=== PATIENT | female | born 1990 | race Caucasian/White ===

== ENCOUNTER 2017-11-05 20:26 | Emergency (ER) | payer BC, OTHER ==
[~2017-11-05] VITALS: Ht 172.7 cm; Wt 161.0 kg
[~2017-11-05 20:26] MED LIST: MOBIC7.5 MG; WELLBUTRIN100 MG
[2017-11-05] MEDS ORDERED: HYDROCODONE/APAP 10MG-325MG TAB PO ONE (22:15)
[2017-11-05] MEDS ORDERED: KETOROLAC TROMETHAMINE 60 MG/2 ML VIAL IM ONE (22:15)
[2017-11-05 23:04] LABS: BILIRUBIN,URINE NEGATIVE (NEGATIVE); KETONES,URINE NEGATIVE (NEGATIVE); LEUKOCYTE ESTERASE ,URINE NEGATIVE (NEGATIVE); NITRITE,URINE NEGATIVE (NEGATIVE); URINE UROBILINOGEN 0.2 mg/dL (0.2 - 1)
[2017-11-05 23:10] LABS: PROTEIN,URINE DIPSTICK 1+ (NEGATIVE)
[2017-11-05 23:11] LABS: CLARITY,URINE CLOUDY (CLEAR); COLOR,URINE YELLOW (YELLOW)
[2017-11-05 23:13] LABS: PREGNANCY TEST, URINE NEGATIVE (NEGATIVE)
[2017-11-05 23:14] LABS: EPITHELIAL CELLS,URINE FEW /LPF; RBC,URINE 21-50 /HPF (0-5); WBC,URINE (MAN) 0-5 /HPF (0-5)
--- NOTE | 2017-11-06 00:15 | Diagnostic Imaging Report ---
EXAM: LUMBAR SPINE, AP, lateral, bilateral oblique and coned lateral view, 5 views DATE: 11/05/2017 9:57 PM Time stamp on exam: 2316 hours INDICATION: Lower back pain COMPARISON: None FINDINGS: BONES: Five lumbar-type vertebral bodies. The alignment is within normal limits. No acute displaced fractures. No lytic or blastic lesions. DISCS: The disc-spaces are well-maintained. JOINTS: The facet joints and sacroiliac joints are unremarkable. SOFT TISSUES: Unremarkable IMPRESSION: No acute lumbar spine radiographic findings. Signed by: Dr. Junie Reilly M.D. on 11/06/2017 12:11 AM
[2017-11-06 01:28] VITALS: BP 139/71
== END 2017-11-06 01:45 | disposition home or self-care (01) ==
LOC: ER 20:26
DX: M54.41 Lumbago with sciatica, right side (principal); S39.012A Strain of muscle, fascia and tendon of lower back, initial encounter
CPT/HCPCS: 72110; 81001; 81025; 87086; 99283; J1885

== ENCOUNTER 2019-03-31 17:38 | Emergency (ER) | payer BC ==
[~2019-03-31] VITALS: Ht 172.7 cm; Wt 170.1 kg
--- OUTSIDE RECORDS SUMMARY | 2019-03-31 17:40 | XMS REPORT ---
Author Author [facility] Address Unknown Phone Unavailable Care Team Providers Care Cook Larder Name Role Phone Maureen ENGEL Unavailable Unavailable Problems This patient has no known problems. Allergies, Adverse Reactions, Alerts This patient has no known allergies or adverse reactions. Medications This patient has no known medications. Results Test Description Test Time Test Comments Text Results Atomic Results Result Comments SP LUMBAR, COMPLETE MIN 4VW [place] [address] Patient Name: JAZMIN ASHBY MR #: [id number] : 1990 Age/Sex: 26/F Req #: [id number] Adm Physician: Ordered by: ROMA ENGEL MD Report #: [id number] Location: ER Room/Bed: Procedure: [id number] DX/SP LUMBAR, COMPLETE MIN 4VW Exam Date: 11/06/17 Exam Time: 2350 REPORT STATUS: Signed EXAM: LUMBAR SPINE, AP, lateral, bilateral oblique and coned lateral view, 5 views DATE: 11/05/2017 9:57 PM Time stamp on exam: 2316 hours INDICATION: Lower back pain COMPARISON: None FINDINGS: BONES: Five lumbar-type vertebral bodies. The alignment is within normal limits. No acute displaced fractures. No lytic or blastic lesions. DISCS: The disc-spaces are well-maintained. JOINTS: The facet joints and sacroiliac joints are unremarkable. SOFT TISSUES: Unremarkable IMPRESSION: No acute lumbar spine radiographic findings. Signed by: Dr. Pattie Reilly M.D. on 11/06/2017 12:11 AM Dictated By: PATTIE REILLY MD Transcribed By: CHAVA on 11/06/1710 COPY TO: ROMA ENGEL MD
[2019-03-31] MEDS ORDERED: SODIUM CHLORIDE 0.9% 1000ML 1,000 ML IV STA (17:47)
[2019-03-31] MEDS ORDERED: MECLIZINE HCL 12.5 MG TAB PO ONE (18:00)
[2019-03-31 18:07] LABS: BASOPHILS # (AUTO) 0.1 (0.0-0.1); BASOPHILS % 0.7 % (0.0-1.0); EOSINOPHILS # (AUTO) 0.2 (0.0-0.4); EOSINOPHILS % 1.5 % (0.0-6.0); HEMATOCRIT 43.8 % (34.2-44.1); HEMOGLOBIN 14.2 g/dL (12.0-16.0); LYMPHOCYTES # (AUTO) 3.1 (1.0-3.2); LYMPHOCYTES % 28.1 % (18.0-39.1); MEAN CORPUSCULAR HEMOGLOBIN 27.3 pg (28-32); MEAN CORPUSCULAR HGB CONC 32.4 g/dL (31-35); MEAN CORPUSCULAR VOLUME 84.1 fL (81-99); MONOCYTES # (AUTO) 0.6 (0.2-0.8); NEUTROPHILS % 63.8 % (38.7-80.0); PLATELET COUNT 402 x10e3/uL (140-360); RED BLOOD COUNT 5.21 x10e6/uL (3.6-5.1); RED CELL DISTRIBUTION WIDTH 13.5 % (11.7-14.4)
[2019-03-31 18:22] LABS: ALANINE AMINOTRANSFERASE 37 IU/L (0-55); ALBUMIN 3.7 g/dL (3.5-5.0); ALBUMIN/GLOBULIN RATIO 0.8 (0.8-2.0); ALKALINE PHOSPHATASE 57 IU/L (40-150); ANION GAP 16.3 mmol/L (8-16); BLOOD UREA NITROGEN 10 mg/dL (7-26); BUN/CREATININE RATIO 14 (6-25); CARBON DIOXIDE 22 mmol/L (22-29); CHLORIDE 103 mmol/L (98-107); CREATINE KINASE 48 IU/L (29-168); CREATININE, SERUM 0.72 mg/dL (0.57-1.11); EST GLOMERULAR FILTRATION RATE > 60 ML/MIN (60-); GLUCOSE 129 mg/dL (74-118); POTASSIUM 4.3 mmol/L (3.5-5.1); SODIUM 137 mmol/L (136-145)
--- NOTE | 2019-03-31 18:29 | Diagnostic Imaging Report ---
CT BRAIN WO HISTORY: Vertigo, dizziness, headache, arm and hand numbness COMPARISON: Report from head CT dated 10/10/2015 (images not available at time of dictation). TECHNIQUE: Noncontrast axial scans were obtained from skull base to the vertex. Coronal and sagittal reconstructions obtained from the axial data. One or more of the following dose reduction techniques were used: Automated exposure control, adjustment of the mA and/or kV according to patient size, and/or utilization of iterative reconstruction technique. DISCUSSION: Scalp/Skull: Unremarkable. Brain sulci: Appropriate for patient's age. Ventricles: Normal in size and configuration. No hydrocephalus. Extra-axial spaces: No masses or fluid collections. Parenchyma: No abnormal densities. No mass, hemorrhage, or large vascular territory acute infarct. Dural sinuses: No abnormal densities. Sellar/Suprasellar region: Intact. Skull base: Intact. Incidental findings: None. IMPRESSION: No intracranial abnormalities. Signed by: Dr. Stephan White M.D. on 03/31/2019 6:26 PM
[2019-03-31] MEDS ORDERED: KETOROLAC TROMETHAMINE 30 MG/ML VIAL IV NR (18:46)
[2019-03-31] MEDS ORDERED: DIPHENHYDRAMINE HCL INJ 50 MG/ML VIAL IV NR (19:00)
[2019-03-31] MEDS ORDERED: METOCLOPRAMIDE HCL 10 MG/2ML VIAL IV NR (19:00)
[2019-03-31 19:14] LABS: BILIRUBIN,URINE NEGATIVE (NEGATIVE); CLARITY,URINE SL CLOUDY (CLEAR); COLOR,URINE YELLOW (YELLOW); KETONES,URINE NEGATIVE (NEGATIVE); LEUKOCYTE ESTERASE ,URINE TRACE (NEGATIVE); NITRITE,URINE NEGATIVE (NEGATIVE); PREGNANCY TEST, URINE NEGATIVE (NEGATIVE); PROTEIN,URINE DIPSTICK NEGATIVE (NEGATIVE); URINE UROBILINOGEN 0.2 mg/dL (0.2 - 1)
[2019-03-31 19:24] LABS: BACTERIA,URINE MANY /HPF; EPITHELIAL CELLS,URINE FEW /LPF; RBC,URINE 0-5 /HPF (0-5); WBC,URINE (MAN) 0-5 /HPF (0-5)
--- NOTE | 2019-03-31 19:44 | NUR ---
pt states she feels much better after meds, awake alert skin w/d resp nonlab. nad noted. approx 500cc ns infused
== END 2019-03-31 20:10 | disposition home or self-care (01) ==
LOC: ER 17:38
DX: R42 Dizziness and giddiness (principal); G44.89 Other headache syndrome; R11.0 Nausea
CPT/HCPCS: 36415; 70450; 80053; 81001; 81025; 82550; 82553; 84484; 85025; 87086; 93005; 99284; J1200; J1885; J2765; J7030; J8597

== ENCOUNTER 2020-01-01 03:28 | Observation (INO) | payer BC, OTHER ==
[~2020-01-01] VITALS: Ht 170.2 cm; Wt 129.7 kg
--- OUTSIDE RECORDS SUMMARY | 2020-01-01 03:30 | XMS REPORT | Summary of Care ---
Author Author [facility] Address [address] [place] [address] Phone Unavailable Care Team Providers Care Nut Grinder Name Role Phone LB ARITA MD Unavailable Unavailable TESS HOGAN HIJOSE RAUL Unavailable Unavailable Unavailable Unavailable Functional Status Name Dates Details Functional status health issues are not documented Status: Name Dates Details Cognitive status health issues are not documented Status: Problems Name Dates Details Pre-op testing (V7., Z01.818) Status: Active GERD (gastroesophageal reflux disease) (530.81, K21.9) Status: Active NIKHIL on CPAP (327.23, G47.33) Status: Active Eczema (692.9, L30.9) Status: Active Migraine (346.90, G43.909) Status: Active Vertigo (780.4, R42) Status: Active H/O ovarian cystectomy (V15.29, Z98.890) Status: Active Menorrhagia (626.2, N92.0) Status: Active IUD (intrauterine device) in place (V45.51, Z97.5) Status: Active Anxiety and depression (300.00, F41.9) Status: Active Herniated disc (722.2) Status: Active Plantar fasciitis (728.71, M72.2) Status: Active Encounter for pre-operative laboratory testing (, Z01.812) Status: Active Other protein-calorie malnutrition (263.8, E46) Status: Active Fatigue (780.79, R53.83) Status: Active Chest pain (786.50, R07.9) Status: Active Headache (784.0, R51) Status: Active Pre-operative examination (84, Z01.818) Status: Active Morbid obesity with BMI of 50.0-59.9, adult (278.01, E66.01) Status: Active Dyspnea (786.09, R06.00) Status: Active Medications Name Dates Details Citalopram Hydrobromide 20 MG Oral Tablet Active Allergies and Adverse Reactions Name Dates Details No Known Drug Allergies (Allergy) Status: Active Past Medical History Name Dates Details History of Migraines (346.90, G43.909) Status: Resolved History of obstructive sleep apnea (327.23, Z86.69) Status: Resolved Procedures Procedure Dates Details History of Esophagogastroduodenoscopy Completed Immunization Name Dates Details Immunizations not documented Family History Name Dates Details Family history of diabetes mellitus (V18.0, Z83.3) Status: Active Family history of obesity (V18.19, Z83.49) Status: Active Family history of malignant neoplasm of cervix (V16.49, Z80.49) Status: Active Name Dates Details Family history of hypertension (V17.49, Z82.49) Status: Active Family history of diabetes mellitus (V18.0, Z83.3) Status: Active Family history of obesity (V18.19, Z83.49) Status: Active Family history of cardiac disorder (V17.49, Z82.49) Status: Active Name Dates Details Family history of hypertension (V17.49, Z82.49) Status: Active Family history of diabetes mellitus (V18.0, Z83.3) Status: Active Family history of obesity (V18.19, Z83.49) Status: Active Family history of cardiac disorder (V17.49, Z82.49) Status: Active Social History Name Dates Details - Status: Name Dates Details Never smoker Vital Signs Date Test Result Details No Known Vitals to report Results Date Description Value Details Results not documented Plan of Care Name Dates Details Planned Observations Planned Goals not documented Instructions Name Dates Details Instructions not documented Encounters Appointment; JOSE RAUL PULIDO M.D. Encounter Diagnosis: Problem not documented On: 10-May-2019 14:00 Appointment; CONSTANTINE BROWN M.D. Encounter Diagnosis: Problem not documented On: 26-Jun-2019 8:20 Appointment; ENRIKE MULLER Encounter Diagnosis: Problem not documented On: 03-Jul-2019 8:45 Appointment; CONSTANTINE BROWN M.D. Encounter Diagnosis: Problem not documented On: 19-Jul-2019 16:00 Appointment; CONSTANTINE BROWN M.D. Encounter Diagnosis: Problem not documented On: 19-Jul-2019 16:00
--- OUTSIDE RECORDS SUMMARY | 2020-01-01 03:30 | XMS REPORT | Summary of Care ---
Author Author CONSTANTINE BROWN M.D. Organization Unknown Address Unknown Phone Unavailable Care Team Providers Care Manager Financial Reporting Name Role Phone CONSTANTINE BROWN M.D. Unavailable Unavailable LYLA HOGAN, LB Spencer Unavailable Unavailable TESS HOGAN NYJOSE RAUL Unavailable Unavailable Unavailable Unavailable Functional Status Name Dates Details Functional status health issues are not documented Status: Name Dates Details Cognitive status health issues are not documented Status: Problems Name Dates Details Pre-op testing (., Z01.818) Status: Active GERD (gastroesophageal reflux disease) [...] Z86.69) Status: Resolved Procedures Procedure Dates Details [QLH] CBC (INCLUDES DIFF/PLT) Date: 23-May-2019 [QLH] CMP W/EGFR Date: 23-May-2019 [QLH] FERRITIN Date: 23-May-2019 [QLH] FOLATE, SERUM Date: 23-May-2019 [QLH] HEMOGLOBIN A1c Date: 23-May-2019 [QLH] IRON AND TOTAL IRON BINDING CAPACITY Date: 23-May-2019 [QLH] LIPID PANEL Date: 23-May-2019 [QLH] PTH, INTACT (WITHOUT CALCIUM) Date: 23-May-2019 [QLH] TSH, 3RD GENERATION W/REFLEX TO FT4 Date: 23-May-2019 [QLH] VITAMIN A (RETINOL) Date: 23-May-2019 [QLH] VITAMIN B1, WHOLE BLOOD Date: 23-May-2019 [QLH] VITAMIN B12 Date: 23-May-2019 [QLH] VITAMIN D, 25-HYDROXY, LC/MS/MS Date: 23-May-2019 [QLH] VITAMIN E (TOCOPHEROL) Date: 23-May-2019 [QLH] CMP W/EGFR Date: 26-Jun-2019 [QLH] CBC (INCLUDES DIFF/PLT) Date: 26-Jun-2019 [QLH] LIPID PANEL Date: 26-Jun-2019 [QLH] TSH, 3RD GENERATION W/REFLEX TO FT4 Date: 26-Jun-2019 [QLH] HEMOGLOBIN A1c Date: 26-Jun-2019 [QLH] B TYPE NATRIURETIC PEPTIDE (BNP) Date: 26-Jun-2019 [N] 2D Echo complete, with Doppler [id number] Date: 26-Jun-2019 History of Esophagogastroduodenoscopy Completed Immunization Name Dates [...] smoker Vital Signs Date Test Result Details [id number] BP Systolic 135 mm[Hg] Status: Comments: Location: RUE; Position: Sitting BP Diastolic 84 mm[Hg] Status: Comments: Location: RUE; Position: Sitting Height 67 in Status: Weight 360 lb Status: Body Mass Index Calculated 56.38 kg/m2 Status: Body Surface Area Calculated 2.6 m2 Status: Heart Rate 87 /min Status: Results Date Description Value Details Results not documented Plan of Care Name Dates Details Planned Observations [QLH] CMP W/EGFR On: 13-Aug-2019 Intent [QLH] CBC (INCLUDES DIFF/PLT) On: 13-Aug-2019 Intent [QLH] LIPID PANEL On: 13-Aug-2019 Intent [QLH] TSH, 3RD GENERATION W/REFLEX TO FT4 On: 13-Aug-2019 Intent [QLH] HEMOGLOBIN A1c On: 13-Aug-2019 Intent [QLH] B TYPE NATRIURETIC PEPTIDE (BNP) On: 13-Aug-2019 Intent [N] 2D Echo complete, with Doppler [id number] On: 26-Jun-2019 Intent Planned Goals not documented Planned Encounters Appointment; SE, ECHO On: 03-Jul-2019 8:45 Appointment; CONSTANTINE BROWN M.D. On: 19-Jul-2019 16:00 Interventions Provided Plan* # Preoperative risk assessment * - There are no active cardiac issues that are immediately prohibitive of surgery * - Based on history, I am not sure the patient is able to achieve > 4 METs per history. This likely reflects deconditioning but in order to more accurately risk-stratify, will perform echocardiogram and treadmill stress testing. * # Exertional dyspnea * - Again likely deconditioning but echocardiogram and treadmill stress test as above * # Obesity * - Complicates many aspects of overall wellness * - Encouraged weight loss through heart-healthy caloric restriction and increased physical activity as tolerated. * Follow up in 1 week after tests Discussion/Summary* Reviewed and discussed clinical cardiac findings and medications. * EKG reviewed and discussed. Instructions Name Dates Details Instructions not documented Encounters Appointment; JOSE RAUL PULIDO M.D. Encounter Diagnosis: Problem not documented On: 10-May-2019 14:00 Appointment; CONSTANTINE BROWN M.D. Encounter Diagnosis: Problem not documented On: 26-Jun-2019 8:20
[2020-01-01] MEDS ORDERED: ONDANSETRON HCL INJ 2MG/ML 2ML 2 MG/ML VIAL IV STA ×2 (03:32→06:53)
[2020-01-01] MEDS ORDERED: KETOROLAC TROMETHAMINE 30 MG/ML VIAL IV STA (03:32)
[2020-01-01] MEDS ORDERED: SODIUM CHLORIDE 0.9% 1000ML 1,000 ML IV SCH (03:45)
[2020-01-01 03:57] LABS: BASOPHILS # (AUTO) 0.1 (0.0-0.1); BASOPHILS % 0.9 % (0.0-1.0); EOSINOPHILS # (AUTO) 0.1 (0.0-0.4); EOSINOPHILS % 1.3 % (0.0-6.0); HEMATOCRIT 41.6 % (34.2-44.1); HEMOGLOBIN 13.9 g/dL (12.0-16.0); LYMPHOCYTES # (AUTO) 1.8 (1.0-3.2); LYMPHOCYTES % 17.3 % (18.0-39.1); MEAN CORPUSCULAR HEMOGLOBIN 28.9 pg (28-32); MEAN CORPUSCULAR HGB CONC 33.4 g/dL (31-35); MEAN CORPUSCULAR VOLUME 86.5 fL (81-99); MONOCYTES # (AUTO) 0.5 (0.2-0.8); MONOCYTES % 5.1 % (4.4-11.3); NEUTROPHILS # (AUTO) 7.6 (2.1-6.9); NEUTROPHILS % 75.1 % (38.7-80.0); PLATELET COUNT 290 x10e3/uL (140-360); RED BLOOD COUNT 4.81 x10e6/uL (3.6-5.1); RED CELL DISTRIBUTION WIDTH 13.9 % (11.7-14.4)
[2020-01-01 04:10] LABS: ALANINE AMINOTRANSFERASE 255 IU/L (0-55); ALBUMIN 3.6 g/dL (3.5-5.0); ALKALINE PHOSPHATASE 140 IU/L (40-150); ANION GAP 15.1 mmol/L (8-16); BLOOD UREA NITROGEN 8 mg/dL (7-26); BUN/CREATININE RATIO 11 (6-25); CALCIUM 9.5 mg/dL (8.4-10.2); CARBON DIOXIDE 23 mmol/L (22-29); CHLORIDE 104 mmol/L (98-107); CREATININE, SERUM 0.75 mg/dL (0.57-1.11); EST GLOMERULAR FILTRATION RATE > 60 ML/MIN (60-); GLUCOSE 101 mg/dL (74-118); POTASSIUM 4.1 mmol/L (3.5-5.1); SODIUM 138 mmol/L (136-145)
[2020-01-01] MEDS ORDERED: IOPAMIDOL 370 MG/ML 200 ML INFUS..BTL INJ ONE (06:34)
[2020-01-01] MEDS ORDERED: SODIUM CHLORIDE 0.9% 50ML 50 ML ONE (06:35)
[2020-01-01] MEDS ORDERED: MORPHINE SULFATE INJ 4 MG/ML INJ 1ML IV STA (06:53)
--- NOTE | 2020-01-01 08:09 | Diagnostic Imaging Report ---
EXAM: CT Abdomen and Pelvis WITH contrast INDICATION: ^abd pain ^[id number] ^0635 COMPARISON: None. TECHNIQUE: Abdomen and pelvis were scanned utilizing a multidetector helical scanner from the lung base to the pubic symphysis after administration of IV contrast. Coronal and sagittal reformations were obtained. Dose modulation, iterative reconstruction, and/or weight based adjustment of the mA/kV was utilized to reduce the radiation dose to as low as reasonably achievable. Routine protocol was performed. Scan was performed when during portal venous phase. IV CONTRAST: 150 mL of Omnipaque 300 ORAL CONTRAST: Water COMPLICATIONS: None RADIATION DOSE: Total DLP: 827.87 mGy-cm Estimated effective dose: (DLP x 0.015 x size factor) mSv CTDIvol has been reviewed. It is below the limits set by the Radiation Protocol Committee (RPC). FINDINGS: LINES and TUBES: None. LOWER THORAX: Unremarkable HEPATOBILIARY: No focal hepatic lesions. No biliary ductal dilation. GALLBLADDER: No radio-opaque stones or sludge. No wall thickening. SPLEEN: No splenomegaly. PANCREAS: No focal masses or ductal dilatation. ADRENALS: No adrenal nodules KIDNEYS/URETERS: Kidneys enhance symmetrically. No hydronephrosis. No cystic or solid mass lesions. There is a 0.6 cm nonobstructive calculus in lower pole of the left kidney. GI TRACT: Status post gastric sleeve surgery. There is a small hiatal hernia with thickening of distal esophagus. No abnormal distention, wall thickening, or evidence of bowel obstruction. Appendix is normal. PELVIC ORGANS/BLADDER: There is IUD in place in appropriate position. LYMPH NODES: No lymphadenopathy. VESSELS: Unremarkable. PERITONEUM / RETROPERITONEUM: No free air or fluid. BONES: Unremarkable. SOFT TISSUES: Unremarkable. IMPRESSION: 1. Nonobstructive 0.6 cm calculus in lower pole of the left kidney. 2. Small hiatal hernia with thickening of distal esophagus. Recommend further evaluation with endoscopy. Signed by: Bay White MD on 01/01/2020 8:06 AM
[2020-01-01 08:40] LABS: CLARITY,URINE SL CLOUDY (CLEAR); COLOR,URINE RED (YELLOW); KETONES,URINE 2+ (NEGATIVE); LEUKOCYTE ESTERASE ,URINE NEGATIVE (NEGATIVE); NITRITE,URINE NEGATIVE (NEGATIVE); PROTEIN,URINE DIPSTICK TRACE (NEGATIVE)
[2020-01-01 08:41] LABS: BILIRUBIN,URINE LARGE (NEGATIVE); URINE UROBILINOGEN 4 mg/dL (0.2 - 1)
[2020-01-01] MEDS ORDERED: MORPHINE SULFATE INJ 4 MG/ML INJ 1ML IV PRN (08:45)
[2020-01-01 08:51] LABS: BACTERIA,URINE FEW /HPF; EPITHELIAL CELLS,URINE MANY /LPF; RBC,URINE 0-5 /HPF (0-5)
[2020-01-01] MEDS: SODIUM CHLORIDE 0.9% 1000ML 1,000 ML IV SCH ×3 (09:32→22:33)
[2020-01-01] MEDS: PIPER-TAZ 3.375 GM 50 ML IV SCH ×3 (09:33→21:40)
--- NOTE | 2020-01-01 10:12 | NUR ---
PATIENT PROVIDED WITH PILLOW, AND PLACED ON WAFFLE MATTRESS AT THIS TIME
--- NOTE | 2020-01-01 22:02 | NUR ---
PT RECEIVED FROM ER VIA STRETCHER ACCOMPANIED BY FAMILY- MOM. PT IS ALERT AND ORIENTED X3. RESPIRATIONS EVEN AND UNLABORED. PIV IN LEFT ARM. DENIES PAIN. ORIENTED TO ROOM,PMC, AND PLAN OF CARE. PT AMBULATE TO BR TO VOID. PT REPORT HAVING LIQUID STOOLS.CONTINUE TO MONITOR FOR ABDOMINAL PAIN.
--- NOTE | 2020-01-01 22:02 | NUR ---
PT REPORT NOT ON ANY HOME MEDS AT THIS TIME.
[2020-01-01 23:00] VITALS: BP 118/70
[2020-01-02] VITALS (7 sets, daily range): BP systolic 102–129; BP diastolic 67–81
[2020-01-02] MEDS: PIPER-TAZ 3.375 GM 50 ML IV SCH ×4 (04:46→22:22)
[2020-01-02 05:25] LABS: BASOPHILS # (AUTO) 0.1 (0.0-0.1); BASOPHILS % 0.7 % (0.0-1.0); EOSINOPHILS # (AUTO) 0.3 (0.0-0.4); EOSINOPHILS % 2.9 % (0.0-6.0); HEMATOCRIT 37.2 % (34.2-44.1); HEMOGLOBIN 12.3 g/dL (12.0-16.0); LYMPHOCYTES # (AUTO) 2.7 (1.0-3.2); LYMPHOCYTES % 26.8 % (18.0-39.1); MEAN CORPUSCULAR HEMOGLOBIN 28.7 pg (28-32); MEAN CORPUSCULAR HGB CONC 33.1 g/dL (31-35); MEAN CORPUSCULAR VOLUME 86.9 fL (81-99); MONOCYTES # (AUTO) 0.4 (0.2-0.8); MONOCYTES % 4.3 % (4.4-11.3); NEUTROPHILS # (AUTO) 6.4 (2.1-6.9); NEUTROPHILS % 65.1 % (38.7-80.0); PLATELET COUNT 246 x10e3/uL (140-360); RED BLOOD COUNT 4.28 x10e6/uL (3.6-5.1); RED CELL DISTRIBUTION WIDTH 14.5 % (11.7-14.4)
[2020-01-02 05:54] LABS: ALANINE AMINOTRANSFERASE 263 IU/L (0-55); ALBUMIN/GLOBULIN RATIO 0.9 (0.8-2.0); ALKALINE PHOSPHATASE 108 IU/L (40-150); ANION GAP 10.6 mmol/L (8-16); BLOOD UREA NITROGEN < 5 mg/dL (7-26); CALCIUM 8.8 mg/dL (8.4-10.2); CARBON DIOXIDE 23 mmol/L (22-29); CHLORIDE 109 mmol/L (98-107); CREATININE, SERUM 0.68 mg/dL (0.57-1.11); EST GLOMERULAR FILTRATION RATE > 60 ML/MIN (60-); GLUCOSE 87 mg/dL (74-118); POTASSIUM 3.6 mmol/L (3.5-5.1); SODIUM 139 mmol/L (136-145)
[2020-01-02 06:00] LABS: BUN/CREATININE RATIO 7 (6-25)
[2020-01-02] MEDS: PANTOPRAZOLE 40 MG 10ML VIAL IV SCH ×2 (08:14→17:44)
[2020-01-02] MEDS: SODIUM CHLORIDE 0.9% 1000ML 1,000 ML IV SCH ×2 (08:40→12:40)
--- NOTE | 2020-01-02 10:27 | NUR ---
Spoke to nuclear medicine department and they said to go ahead and keep patient NPO for 4 hours until HIDA can be done. Patient was educated on remaining NPO until test and verbalized understanding.
--- NOTE | 2020-01-02 19:12 | NUR ---
Received bedside report from day nurse. Patient resting in bed, no s/s of distress or c/o pain at this time. All safety measures in place. Family at bedside. Will continue to monitor.
--- NOTE | 2020-01-02 19:28 | Diagnostic Imaging Report ---
Hepatobiliary Scan with Gallbladder Ejection Fraction Clinical information: Severe abdominal pain with nausea, vomiting and diarrhea; transaminitis Technique: Following intravenous administration of 5.5 millicuries of Tc-99m mebrofenin, dynamic images of the abdomen in the anterior projection were obtained through 60 minutes. Sincalide (CCK analog) 2.6 micrograms was administered intravenously over 30 minutes with additional imaging for determination of gallbladder ejection fraction. Discussion: Perfusion of the liver is normal. Extraction of tracer by the liver parenchyma is normal. Tracer appears promptly within the biliary tract. The gallbladder begins to fill at 22 minutes post injection of tracer and fills adequately. Tracer is seen in the small bowel by 14 minutes. There is no contractile response by the gallbladder to the pharmacologic dose of sincalide. No emptying of the gallbladder occurs during the 30 minute infusion. Impression: 1. Filling of the gallbladder excludes acute cystic duct obstruction/acute cholecystitis. 2. The gallbladder ejection fraction is undefined as there is no emptying of the gallbladder during the infusion of sincalide. This absence of a contractile response to sincalide supports the clinical diagnosis of chronic cholecystitis/gallbladder dyskinesia. Signed by: Dr. Latonya Jack M.D. on 01/02/2020 7:25 PM
[2020-01-03] VITALS (9 sets, daily range): BP systolic 108–152; BP diastolic 57–87
[2020-01-03] MEDS: SODIUM CHLORIDE 0.9% 1000ML 1,000 ML IV SCH ×3 (00:47→17:16)
[2020-01-03] MEDS: PIPER-TAZ 3.375 GM 50 ML IV SCH ×4 (03:05→20:30)
[2020-01-03 05:31] LABS: BASOPHILS # (AUTO) 0.1 (0.0-0.1); BASOPHILS % 0.7 % (0.0-1.0); EOSINOPHILS # (AUTO) 0.3 (0.0-0.4); EOSINOPHILS % 2.7 % (0.0-6.0); HEMATOCRIT 35.9 % (34.2-44.1); HEMOGLOBIN 11.6 g/dL (12.0-16.0); LYMPHOCYTES # (AUTO) 3.1 (1.0-3.2); LYMPHOCYTES % 33.6 % (18.0-39.1); MEAN CORPUSCULAR HEMOGLOBIN 27.9 pg (28-32); MEAN CORPUSCULAR HGB CONC 32.3 g/dL (31-35); MEAN CORPUSCULAR VOLUME 86.3 fL (81-99); MONOCYTES # (AUTO) 0.5 (0.2-0.8); MONOCYTES % 5.1 % (4.4-11.3); NEUTROPHILS # (AUTO) 5.3 (2.1-6.9); NEUTROPHILS % 57.7 % (38.7-80.0); PLATELET COUNT 248 x10e3/uL (140-360); RED BLOOD COUNT 4.16 x10e6/uL (3.6-5.1); RED CELL DISTRIBUTION WIDTH 14.4 % (11.7-14.4)
[2020-01-03 06:05] LABS: ALANINE AMINOTRANSFERASE 182 IU/L (0-55); ALBUMIN/GLOBULIN RATIO 0.9 (0.8-2.0); ALKALINE PHOSPHATASE 91 IU/L (40-150); ANION GAP 9.5 mmol/L (8-16); BLOOD UREA NITROGEN < 5 mg/dL (7-26); CALCIUM 8.7 mg/dL (8.4-10.2); CARBON DIOXIDE 22 mmol/L (22-29); CHLORIDE 109 mmol/L (98-107); CREATININE, SERUM 0.61 mg/dL (0.57-1.11); EST GLOMERULAR FILTRATION RATE > 60 ML/MIN (60-); GLUCOSE 76 mg/dL (74-118); POTASSIUM 3.5 mmol/L (3.5-5.1); SODIUM 137 mmol/L (136-145)
[2020-01-03 06:11] LABS: BUN/CREATININE RATIO 8 (6-25)
--- NOTE | 2020-01-03 06:33 | NUR ---
Left message with Dr. Vince Foster's answering service regarding routine consult for acute cholecystitis.
--- NOTE | 2020-01-03 06:42 | NUR ---
Received return call from Dr. Vince Foster. Confirmed that patient is currently NPO.
--- NOTE | 2020-01-03 07:00 | NUR ---
BEDSIDE SHIFT REPORT RECEIVED FROM THE COMPUTER AIDED DESIGN DRAFTER RN. PT AAOX4. EDUCATED PT ABOUT FALL PRECAUTIONS. CALL LIGHT WITH IN EASY REACH. INSTRUCTED PT TO USE CALL LIGHT FOR ALL THE NEEDS. PT VERBALIZED UNDERSTANDING. BED IS LOW AND LOCKED. SIDE RAILS X2. PT DENIES NEEDS AT THIS TIME.
--- NOTE | 2020-01-03 07:21 | NUR ---
Bedside report given to day nurse. Patient resting in bed, no s/s of distress or c/o pain at this time. All safety measures in place. Family at bedside.
[2020-01-03] MEDS: PANTOPRAZOLE 40 MG 10ML VIAL IV SCH ×2 (09:53→17:16)
--- NOTE | 2020-01-03 11:30 | NUR ---
PT OFF UNIT FOR PROCEDURE IN SAFE CONDITION.
[2020-01-03] MEDS ORDERED: BUPIVACAINE 0.25% 30ML SDV INJ ONE (11:54)
--- NOTE | 2020-01-03 14:35 | NUR ---
PT RECEIVED FROM PACU AFTER CHOLECYSTECTOMY. PT IS AAOX4. FAMILY MEMBER AT BEDSIDE. LAPAROSCOPIC SITES X4 WITH BANDAGES CDI. PT DENIES NEEDS AT THIS TIME.
[2020-01-03] MEDS: HYDROMORPHONE 1MG/1ML INJ IV PRN ×3 (14:43→23:38)
[2020-01-03] MEDS: ONDANSETRON HCL INJ 2MG/ML 2ML 2 MG/ML VIAL IV PRN ×3 (14:43→23:38)
--- NOTE | 2020-01-03 19:00 | NUR ---
Received bedside report from day nurse. Patient sitting on side of bed, c/o incisional pain 05/23. No s/s of distress noted otherwise. 4 trochar sites CDI s/p lap sohail. Assisted patient to restroom and back. All safety measures in place. Family at bedside. Will administer PRN pain medication and continue to monitor.
[2020-01-03] MEDS ORDERED: ROCURONIUM BROMIDE 10 MG/ML 5ML VIAL ONE (19:02)
[2020-01-03] MEDS ORDERED: DEXAMETHASONE SOD PHOS INJ 4 MG/ML VIAL ONE (19:02)
[2020-01-03] MEDS ORDERED: PROPOFOL IV EMULSION 10 MG/ML 20 ML VIAL ONE (19:02)
[2020-01-03] MEDS ORDERED: SEVOFLURANE INHAL SOLN 250 ML PEN BTL ONE (19:02)
[2020-01-03] MEDS ORDERED: LIDOCAINE HCL 2% LOCAL INJ 5 ML SDV VIAL INJ ONE (19:02)
[2020-01-03] MEDS ORDERED: ONDANSETRON HCL INJ 2MG/ML 2ML 2 MG/ML VIAL ONE (19:02)
[2020-01-03] MEDS ORDERED: ATROPINE SULFATE 1 MG/ML VIAL ONE (19:02)
[2020-01-03] MEDS ORDERED: KETOROLAC TROMETHAMINE 30 MG/ML VIAL ONE (19:02)
[2020-01-03] MEDS ORDERED: NEOSTIGMINE 1 MG/ML 10ML VIAL ONE (19:02)
--- NOTE | 2020-01-03 19:52 | Operative Report ---
DATE OF PROCEDURE: 01/03/2020 SURGEON: Clinton Foster MD PREOPERATIVE DIAGNOSES: Cholecystitis and biliary dyskinesia. POSTOPERATIVE DIAGNOSES: Cholecystitis and biliary dyskinesia. OPERATION PERFORMED: Laparoscopic cholecystectomy. ASSISTANTS: 1. Anthony Foster MD. 2. LEONRAD Chavira. ANESTHESIA: General. COMPLICATIONS: None. ESTIMATED BLOOD LOSS: Minimal. DESCRIPTION OF PROCEDURE: With the patient lying in bed in supine position under general endotracheal anesthesia, the abdomen was prepped with Betadine solution and draped in the usual manner. A Veress needle was introduced into the right upper quadrant and pneumoperitoneum was established without any difficulty. A 5 mm trocar was placed in the right subcostal region and a 5 mm video laparoscope was placed into the intraabdominal cavity. Under direct vision, an 11 mm trocar was placed into the umbilicus and a 10 mm video laparoscope was placed into the intraabdominal cavity. Two more 5 mm trocars were placed in the right subcostal region. Laparoscopy revealed the patient to have had the previous gastric sleeve. The liver showed a lot of fatty infiltration and distention consistent with her morbid obesity. The gallbladder was distended, and clearly edematous and distended. The rest of the abdominal exploration was within normal limits. The peritoneum overlying the neck of the gallbladder was then opened and the cystic duct was identified. The cystic duct was then followed to its junction with the common duct. The cystic duct was rather long and small in caliber. The cystic duct was then doubly clipped away from the common duct and divided. The cystic artery was similarly doubly clipped and divided. The gallbladder was then slowly and carefully taken off the liver bed using the cautery scissors. There was quite a bit of edema of the liver bed from the inflammatory process. Nonetheless, the gallbladder was totally removed and hemostasis was ascertained. The gallbladder was placed in a pouch and removed through the umbilicus. Video laparoscopy was then again carried out. The liver bed was found to be perfectly dry. All the excess fluid was aspirated. The pneumoperitoneum was evacuated and all the trocars were removed under direct vision. The midline fascia at the umbilicus was then closed with a [id number] of 0 Vicryl. All layers were infiltrated on the way out with solution of 0.25% Marcaine, subcutaneous tissue was approximated with 3-0 Vicryl and the skin was closed with subcuticular 5-0 Vicryl. Benzoin, Steri-Strips, and Band-Aids were applied. The sponge, lap, and needle count was correct. The patient tolerated the procedure well and returned to the recovery room in stable condition. MD LINDSAY Elise/MO /[id number]
[2020-01-04 01:27] VITALS: BP 116/69
[2020-01-04] MEDS: SODIUM CHLORIDE 0.9% 1000ML 1,000 ML IV SCH ×3 (01:41→16:40)
[2020-01-04] MEDS: PIPER-TAZ 3.375 GM 50 ML IV SCH ×3 (02:05→16:00)
--- NOTE | 2020-01-04 04:33 | NUR ---
Dr. Alvarenga here to see patient. Patient okay to discharge from his standpoint if okay with Dr. Foster. Will pass along to day shift.
[2020-01-04] MEDS: HYDROCODONE/APAP 7.5MG-325MG 1 EA TAB PO PRN ×2 (04:46→14:59)
[2020-01-04] MEDS ORDERED: ULTRAM50 MG PO (05:00)
[2020-01-04 05:07] VITALS: BP 104/58
[2020-01-04 05:42] LABS: BASOPHILS # (AUTO) 0.1 (0.0-0.1); BASOPHILS % 0.4 % (0.0-1.0); EOSINOPHILS % 0.1 % (0.0-6.0); HEMATOCRIT 37.7 % (34.2-44.1); HEMOGLOBIN 12.1 g/dL (12.0-16.0); LYMPHOCYTES # (AUTO) 1.7 (1.0-3.2); LYMPHOCYTES % 12.7 % (18.0-39.1); MEAN CORPUSCULAR HEMOGLOBIN 28.3 pg (28-32); MEAN CORPUSCULAR HGB CONC 32.1 g/dL (31-35); MEAN CORPUSCULAR VOLUME 88.3 fL (81-99); MONOCYTES # (AUTO) 0.5 (0.2-0.8); MONOCYTES % 3.7 % (4.4-11.3); NEUTROPHILS % 82.7 % (38.7-80.0); PLATELET COUNT 253 x10e3/uL (140-360); RED BLOOD COUNT 4.27 x10e6/uL (3.6-5.1); RED CELL DISTRIBUTION WIDTH 14.4 % (11.7-14.4)
[2020-01-04 06:05] LABS: ALANINE AMINOTRANSFERASE 138 IU/L (0-55); ALBUMIN/GLOBULIN RATIO 0.8 (0.8-2.0); ALKALINE PHOSPHATASE 77 IU/L (40-150); ANION GAP 9.9 mmol/L (8-16); BLOOD UREA NITROGEN < 5 mg/dL (7-26); CALCIUM 8.8 mg/dL (8.4-10.2); CARBON DIOXIDE 23 mmol/L (22-29); CHLORIDE 109 mmol/L (98-107); CREATININE, SERUM 0.68 mg/dL (0.57-1.11); EST GLOMERULAR FILTRATION RATE > 60 ML/MIN (60-); GLUCOSE 95 mg/dL (74-118); POTASSIUM 3.9 mmol/L (3.5-5.1); SODIUM 138 mmol/L (136-145)
[2020-01-04 06:06] LABS: BUN/CREATININE RATIO 7 (6-25)
--- NOTE | 2020-01-04 07:00 | NUR ---
BEDSIDE SHIFT REPORT RECEIVED FROM THE ACCOUNT SUPPORT REP RN. PT AAOX4. EDUCATED PT ABOUT FALL PRECAUTIONS. CALL LIGHT WITH IN EASY REACH. INSTRUCTED PT TO USE CALL LIGHT FOR ALL THE NEEDS. PT VERBALIZED UNDERSTANDING. BED IS LOW AND LOCKED. SIDE RAILS X2. PT DENIES NEEDS AT THIS TIME.
--- NOTE | 2020-01-04 07:26 | NUR ---
Bedside report given to day nurse. Patient awake and resting in bed, no s/s of distress or c/o pain at this time. All safety measures in place. Family at bedside.
[2020-01-04 08:24] VITALS: BP 99/58
[2020-01-04 08:44] VITALS: BP 99/58
[2020-01-04] MEDS: PANTOPRAZOLE 40 MG 10ML VIAL IV SCH ×2 (09:34→17:28)
[2020-01-04] MEDS: HYDROMORPHONE 1MG/1ML INJ IV PRN ×2 (10:00→17:35)
[2020-01-04 11:49] VITALS: BP 105/53
--- NOTE | 2020-01-04 13:30 | NUR ---
PAGED DR. Janeth JAVED REGARDING ADVANCING THE DIET. LEFT MESSAGE.
[2020-01-04 16:25] VITALS: BP 106/55
--- NOTE | 2020-01-04 18:49 | NUR ---
THOMAS TO D/C PT PER DR. Janeth JAVED AND DR. ARITA.
[2020-01-04] MEDS ORDERED: ULTRAM 50MG50 MG PO (18:54)
[2020-01-04] MEDS ORDERED: ZOFRAN8 MG PO (18:55)
--- NOTE | 2020-01-04 19:30 | NUR ---
PT DISCHARGED HOME SAFELY WITH FAMILY MEMBER. IV REMOVED, TIP INTACT. DRESSING APPLIED. RX GIVEN. DISCHARGE INSTRUCTIONS GIVEN AND PATIENT VERBALIZED UNDERSTANDING. PT ESCORTED WITH THE TECH TO THE PRIVATE AUTO AT THE FRONT ENTRANCE. PT DENIED FURTHER NEEDS.
== END 2020-01-04 19:38 | disposition home or self-care (01) ==
LOC: ER 03:28 → ERHOLD 08:43 → MED/SURG2 22:03
PROVIDERS: ADMIT Internal Medicine; ATTEND Internal Medicine
DX: K81.0 Acute cholecystitis (principal); K82.8 Other specified diseases of gallbladder; K29.70 Gastritis, unspecified, without bleeding; E66.01 Morbid (severe) obesity due to excess calories; Z68.41 Body mass index [BMI] 40.0-44.9, adult; R79.89 Other specified abnormal findings of blood chemistry; Z98.84 Bariatric surgery status; K21.9 Gastro-esophageal reflux disease without esophagitis
CPT/HCPCS: 36415 ×4; 47562; 74177; 78227; 80053 ×4; 81001; 83690; 84702; 85025 ×4; 88304; 99284; A9537; C1766; C9113 ×3; G0378 ×4; J1170 ×2; J1885; J2270; J2405 ×2; J2543 ×4; J7030 ×4; Q9967; J0461; J1100; J2001; J2710

== ENCOUNTER 2021-03-26 01:13 | Emergency (ER) | payer BC ==
[~2021-03-26] VITALS: Ht 170.2 cm; Wt 129.7 kg
[~2021-03-26 01:13] MED LIST changes: +ULTRAM 50MG50 MG PO; +ULTRAM50 MG PO; +ZOFRAN8 MG PO
[2021-03-26 01:56] LABS: BASOPHILS # (AUTO) 0.1 (0.0-0.1); BASOPHILS % 0.9 % (0.0-1.0); EOSINOPHILS # (AUTO) 0.3 (0.0-0.4); EOSINOPHILS % 2.7 % (0.0-6.0); HEMATOCRIT 37.1 % (34.2-44.1); HEMOGLOBIN 12.5 g/dL (12.0-16.0); LYMPHOCYTES # (AUTO) 4.2 (1.0-3.2); LYMPHOCYTES % 35.3 % (18.0-39.1); MEAN CORPUSCULAR HEMOGLOBIN 29.2 pg (28-32); MEAN CORPUSCULAR HGB CONC 33.7 g/dL (31-35); MEAN CORPUSCULAR VOLUME 86.7 fL (81-99); MONOCYTES # (AUTO) 0.7 (0.2-0.8); MONOCYTES % 5.7 % (4.4-11.3); NEUTROPHILS # (AUTO) 6.5 (2.1-6.9); NEUTROPHILS % 55.1 % (38.7-80.0); PLATELET COUNT 293 x10e3/uL (140-360); RED BLOOD COUNT 4.28 x10e6/uL (3.6-5.1); RED CELL DISTRIBUTION WIDTH 13.2 % (11.7-14.4)
[2021-03-26 02:09] LABS: ALANINE AMINOTRANSFERASE 32 IU/L (0-55); ALBUMIN 3.6 g/dL (3.5-5.0); ALBUMIN/GLOBULIN RATIO 1.1 (0.8-2.0); ALKALINE PHOSPHATASE 47 IU/L (40-150); ANION GAP 11.8 mmol/L (8-16); BLOOD UREA NITROGEN 10 mg/dL (7-26); BUN/CREATININE RATIO 15 (6-25); CALCIUM 8.6 mg/dL (8.4-10.2); CARBON DIOXIDE 26 mmol/L (22-29); CHLORIDE 105 mmol/L (98-107); CREATINE KINASE 42 IU/L (29-168); CREATININE, SERUM 0.66 mg/dL (0.57-1.11); EST GLOMERULAR FILTRATION RATE > 60 ML/MIN (60-); GLUCOSE 92 mg/dL (74-118); POTASSIUM 3.8 mmol/L (3.5-5.1); SALICYLATE < 5.0 mg/dL (0-30); SODIUM 139 mmol/L (136-145)
[2021-03-26 04:13] LABS: AMPHETAMINES SCREEN,URINE NEGATIVE (NEGATIVE); BENZODIAZEPINES SCREEN,URINE NEGATIVE (NEGATIVE); PHENCYCLIDINE SCREEN,URINE NEGATIVE (NEGATIVE)
== END 2021-03-26 13:34 ==
LOC: ER 02:29
DX: T14.91XA Suicide attempt, initial encounter (principal); T42.4X2A Poisoning by benzodiazepines, intentional self-harm, initial encounter; Z20.822 Contact with and (suspected) exposure to COVID-19; F41.9 Anxiety disorder, unspecified; F32.9 Major depressive disorder, single episode, unspecified; F60.3 Borderline personality disorder; Z98.84 Bariatric surgery status
CPT/HCPCS: 36415; 80053; 80307; 80320; 80329 ×2; 82550; 82553; 84484; 84702; 85025; 93005; 99285; U0002